=== PATIENT | male | born 1975 | race Caucasian/White ===

== ENCOUNTER → 2018-09-09 | Outpatient (CLI) | payer MEDICARE ==
[~2018-09-09] MED LIST: CANA100T; INDERAL 20MG20 MG; LEVIMIR; NOVALOG; PRILOSEC 20MG20 MG
== END ==
LOC: ZCOL.LAB 16:33
DX: L02.215 Cutaneous abscess of perineum (principal)

== ENCOUNTER → 2018-10-28 | Outpatient (CLI) | payer MEDICARE | LOC: ZCOL.LAB 16:49 | DX: L02.214 Cutaneous abscess of groin (principal) ==

== ENCOUNTER → 2022-11-25 | Outpatient (CLI) | payer MEDICARE ==
[~2022-11-25] MED LIST changes: +ABILIFY 10MG TA10 MG PO; +ALDACTONE 25MG25 M1 PO; +CRESTOR40 MG PO; +CYMBALTA 60MG60 MG PO; +ENTRESTO 24 MG1 EACH PO; +FLEXERIL 1010 MG/TAB PO; -INDERAL 20MG20 MG; +INDERAL 20MG20 MG PO; +LASIX 20MG TABL20 MG PO; +NORVASC 5MG5 MG/TAB PO; +NOVOLOG 100U100 U/M1 SQ; +PERCOCET 325 MG1 TAB PO; +PHENERGAN 25 TA25 MG PO; -PRILOSEC 20MG20 MG; +PRILOSEC 20MG20 MG PO; +SINGULAIR 110 MG/TAB PO; +TRESIBA FL200 UNIT/1 SQ; +ULTRAM 50MG TAB50 MG PO; +VASCEPA1 GM PO; +ZANAFLEX2 MG PO
== END ==
LOC: COL.RAD 12:53
DX: R91.8 Other nonspecific abnormal finding of lung field (principal); M48.061 Spinal stenosis, lumbar region without neurogenic claudication; M48.07 Spinal stenosis, lumbosacral region; M47.816 Spondylosis without myelopathy or radiculopathy, lumbar region; M51.36 Other intervertebral disc degeneration, lumbar region; M41.86 Other forms of scoliosis, lumbar region

== ENCOUNTER 2023-01-18 10:30 | Outpatient (RCR) | payer MEDICARE | END 2023-02-11 | disposition home or self-care (01) | LOC: WSC | DX: M54.50 Low back pain, unspecified (principal); G89.29 Other chronic pain ==